=== PATIENT | male | born 1950 | race Caucasian/White ===

== ENCOUNTER 2021-05-12 07:30 | Outpatient (RCR) | payer MEDICARE, BC, SELFPAY ==
--- NOTE | 2021-04-14 08:48 | PTOPEVAL ---
Thank you for referring Nikolas Hensley to [facility].? The patient is scheduled to be seen for therapy? 2x/week for 4 weeks. Please review, sign, date and return this plan of care MARLY. I agree with and certify that the following plan of care is medically necessary. Referring Physician Date Attending Provider: Win Bennett MD Diagnosis knee pain jose Onset January 2021 Subjective Information He reports increased pain Query Text:As Reported By Patient/ during sleep or 1st thing in Family the morning. He has increased pain with prolonged sitting or in recliner chair with LE's elevated. The knees feel better after a shower. Has tried pain patches without relief. He received an injection in the left knee with relief of symptoms. He performs chores as needed with breaks as needed. Diagnostic Tests X-Rays For This Problem Yes: minimal medial joint space,mild spur formation particularly medially Previous Treatments Previous Treatments For This Problem 2 yrs for hips and feet Pain Assessment Left Knee(s) Reported Pain Level 4 Pain Description Aching,Sharp,Throbbing Lowest Pain Intensity 4 Greatest Pain Intensity 9 Pain Aggravating Factors Prolonged Position,Sitting Right Knee(s) Reported Pain Level 1 Pain Description Aching Lowest Pain Intensity 0 Greatest Pain Intensity 1 Lower Extremity Range of Motion Knee Range of Motion Right Knee Flexion Range of Motion - Active 135 Knee Extension Range of Motion - Active 0 Left Knee Flexion Range of Motion - Active 140 Knee Extension Range of Motion - Active 0 Lower Extremity Muscle Strength Testing Hip Strength Right Hip Flexion Strength 4+ Good + Hip Extension Strength 5 Normal Hip Abduction Strength 3+ Fair + Left Hip Flexion Strength 4+ Good + Hip Extension Strength 4 Good Hip Abduction Strength 3 Fair Knee Strength Right Knee Flexion Strength 5 Normal Knee Extension Strength 5 Normal Left Knee Flexion Strength 4 Good Knee Extension Strength 4- Good - Muscle Length Testing Muscle Length Testing Two-Joint Hip Flexor Shortened Muscles Short (R) Iliopsoas,Short (L) Iliopsoas,Short (R) Rectus Femoris,Short (L) Rectus Femoris,Short (R) Ilial Tib
--- NOTE | 2021-05-05 07:40 | PCPTNOTE ---
Patient called & cancelled scheduled appointment this date due to in the family.
--- NOTE | 2021-05-12 08:17 | PTOPEVAL ---
Physical Therapy Discharge Note Thank you for referring Nikolas Hensley to [facility].? Nikolas has been seen for 8 therapy visits to address his knee pain. As a result of therapy services he demonstrates improved leg strength, improved pain and improved functional mobility. He has partially achieved his therapy goals this time. He has reached maximal potential with skilled therapy services at this time. Will DC skilled PT with recommendations for him to cont with his home exercises. Please sign this discharge summary MARLY. I agree with and certify that the following plan of care is medically necessary. Referring Physician Date Attending Provider: Win Bennett MD Diagnosis knee pain jose Onset January 2021 Subjective Information He reports decreased pain Query Text:As Reported By Patient/ during sleep but with Family decreased intensity. Improved pain in the morning once up and moving. He has increased pain with prolonged sitting with increased stiffness, but improves with movement. Denies any limitations with community mobility. Cont to have limitations with descending steps. He is performing his HEP 4x/wk. Pain Assessment Left Knee(s) Reported Pain Level 3 Pain Frequency Chronic Lowest Pain Intensity 1 Greatest Pain Intensity 4 Right Knee(s) Reported Pain Level 0 Pain Description Aching,Dull Pain Frequency Chronic Lowest Pain Intensity 0 Greatest Pain Intensity 1 Lower Extremity Muscle Strength Testing Hip Strength Right Hip Flexion Strength 5 Normal Hip Extension Strength 5 Normal Hip Abduction Strength 3+ Fair + Left Hip Flexion Strength 5 Normal Hip Extension Strength 4+ Good + Hip Abduction Strength 4- Good - Knee Strength Right Knee Flexion Strength 5 Normal Knee Extension Strength 5 Normal Left Knee Flexion Strength 5 Normal Knee Extension Strength 5 Normal Gait Assessment Gait Pattern Observed Decreased Stride Length - Left ,Decreased Stride Length - Right,No Heel Strike - Left,No Heel Strike - Right Other Gait Observations jose hip ext. rotation 2 Minute Walk Total Distance Walked (feet) 580 2 Minute Walk Gait Speed Score (feet/ 4.83 second) 2 Minute Walk Test Comments no knee pain changes Stair Climbing Assessment Stair Climbing Assessment Stair Climbing Assistive Devices
== END 2021-05-12 15:46 | disposition home or self-care (01) ==
LOC: ANHPT 07:30
PROVIDERS: PCP Family Medicine Adolescent Medicine; Visit Provider Orthopaedic Surgery
DX: M25.561 Pain in right knee (principal); M25.562 Pain in left knee
CPT/HCPCS: 97110; 97162

== ENCOUNTER → 2022-04-28 14:02 | Outpatient (CLI) | payer MEDICARE, BC, SELFPAY ==
--- NOTE | ~2022-04-28 | CT_ITS ---
EXAMINATION: CT abdomen pelvis wo con DATE: 04/28/2022 14:23 INDICATION: Left abdominal mass. TECHNIQUE: Computed tomography (CT) of the abdomen and pelvis was performed without intravenous contr ast. Automated exposure control and iterative reconstruction technique were employed. The dose-length product was 1031.90 mGy-cm. COMPARISON: CT abdomen and pelvis 12/06/2015 FINDINGS: The visualized portions of the lung bases demonstrate mild atelectasis and mild chronic lara g disease. No pleural effusion. There is left ventricular enlargement of the heart. There is subendoc ardial fat involving left ventricular apex, apical lateral wall, anterior wall, and septal wall, cons istent with old infarct. There are coronary artery calcifications. There are pacer wires in right atr ium, right ventricle, and coronary sinus. There is diffuse hepatic steatosis. The gallbladder, spleen , pancreas, and adrenal glands are normal. There are peripelvic cysts in the kidneys measuring up to 2.5 cm on the left. There are bilateral inguinal hernias containing fat. The prostate is mildly enlar ged. There is diverticulosis of the colon without evidence of diverticulitis. There are no dilated lo ops of bowel. There are changes of appendectomy. There is a 2.1 cm saccular aneurysm of infrarenal ao rta on the left. This gives the aorta an overall diameter of 3.6 cm in this area. There is severe lum bar spondylosis. IMPRESSION: 1. Bilateral inguinal hernias containing fat. 2. Worsened 2.1 cm saccular aneurysm of infrarenal aorta on the left. This gives the aorta an overall diameter of 3.6 cm in this area. Reviewed, dictated and finalized at location A. IMPRESSION: 1. Bilateral inguinal hernias containing fat. 2. Worsened 2.1 cm saccular aneurysm of infrarenal aorta on the left. This give s the aorta an overall diameter of 3.6 cm in this area.
== END ==
PROVIDERS: PCP Family Medicine Adolescent Medicine; Visit Provider Surgery
DX: K40.90 Unilateral inguinal hernia, without obstruction or gangrene, not specified as recurrent (principal); I72.9 Aneurysm of unspecified site; N40.0 Benign prostatic hyperplasia without lower urinary tract symptoms; N28.1 Cyst of kidney, acquired; M47.816 Spondylosis without myelopathy or radiculopathy, lumbar region
CPT/HCPCS: 74176

== ENCOUNTER 2022-09-13 09:13 | Outpatient (CLI) | payer MEDICARE, BC, SELFPAY ==
--- NOTE | 2022-09-13 09:31 | ECG_ITS ---
Measurements Intervals [place] Rate: 61 P: -55 WV: 142 QRS: -57 QRSD: 107 T: 16 QT: 396 QTc: 401 Interpretive Statements ELECTRONIC VENTRICULAR PACEMAKER NO FURTHER INTERPRETATION POSSIBLE NO PREVIOUS ECG AVAILABLE FOR COMPARISON Electronically Signed On 09-13-2022 14:36:03 [employer]EARCH LABORATORY MANAGER by Marco Johnson M.D.
[2022-09-13 11:33] LABS: Anion Gap 3 mmol/L (8-16); Blood Urea Nitrogen 18 mg/dL (9-20); Calcium 8.2 mg/dL (8.4-10.2); Carbon Dioxide 30 mmol/L (22-30); Chloride 101 mmol/L (98-107); Estimated Glomerular Filt Rate 46; Glucose 109 mg/dL (65-110); Potassium 4.1 mmol/L (3.4-5.0); Sodium 134 mmol/L (137-145)
== END 2022-09-13 09:14 | disposition home or self-care (01) ==
PROVIDERS: Anesthesiology; PCP Family Medicine Adolescent Medicine; Visit Provider Plastic Surgery
DX: Z01.818 Encounter for other preprocedural examination (principal); I10 Essential (primary) hypertension; Z95.0 Presence of cardiac pacemaker
CPT/HCPCS: 36415; 80048; 93005

== ENCOUNTER 2022-09-16 00:30 | Day surgery (SDC) | payer MEDICARE, BC, SELFPAY ==
--- NOTE | 2022-09-10 13:22 | PC.NURSE ---
Report to the Outpatient Waiting Room, entrance under the green pavilion located off [facility], at time _0730 on date __09/16/22 . Planned Procedure Time: _0930 . Time changes happen often and if your time is changed the preop area will call you the afternoon before. - You and your visitor will be asked to self-screen and do not enter if you have any COVID symptoms. - Only one visitor is requested with a max of two and NO children visitors are allowed at this time. - The patient visitor may be requested to leave or wait in car when not with patient due to distancing restrictions. - A mask is optional within the hospital at this time. Patients may have clear liquids (water, carbonated beverages, clear teas, apple juice) until 3 hours prior to surgery with a maximum of 20 ounces. - No food from midnight until time of surgery - Infants may have breast milk until 4 hours before surgery, infant formula 6 hours prior to surgery. - Children will be allowed to drink immediately following surgery. If applicable, please bring a bottle or sippy cup to assist with drinking. Juice, water, soda, and popsicles are readily available. For infants on formula, please bring formula the day of surgery. Pacifiers are allowed. Take the following medications with a SIP of water the morning of surgery: __AMIODARONE,CARVEDILOL,PREDNISONE DO NOT STOP ANY OF YOUR OTHER PRESCRIPTION MEDICATIONS PRIOR TO SURGERY ?EXCEPT THE FOLLOWING Medications to discontinue per physician __ALL VITAMINS/SUPPLEMENTS 3 DAYS PRE OP. LAST DOSE 09/12/22 PT STATES REMAIN ON PLAVIX PER DR CORDOVA- DON'T TAKE MORNING OF SURGERY Please no make-up, nail english, hairspray, perfume, deodorant, or body powder the day of surgery. No jewelry (including any body piercings) or valuables the day of surgery, leave them at home. Please take a shower or bath the night before, or the morning of, surgery with an antibacterial soap. Wear comfortable, loose fitting clothing. Children are encouraged to wear pajamas. - Jewelry must be removed prior to entering the operating room. Rings and piercings that are not removed may be cut off. - The hospital will not accept responsibility for valuables. - Please leave all valuables, including medications, at home the day of surgery. If you are going home after surgery, a licensed parts delivery driver must drive you home. - NO public transportation without another adult if you receive anesthesia. - We recommend that an adult stay with you for 24 hours following discharge. - We also recommend that you do not drive, make important decision, drink alcoholic beverages, or take any drugs that were not prescribed by your health care provider for at least 24 hours after your discharge time. Follow any additional instructions given to you from your surgeon. If you or anyone in your household have experienced Covid symptoms in the past week, please notify your surgeon or the nurse liaison at the phone number below for possible testing. Telephone instructions given to ___PATIENT and asked if any additional questions and then verbalized understanding. Patient advised to call surgeon office or pre surgery nurse liaison [phone] if any additional questions.
[2022-09-10 13:29] VITALS: BMI 29.8
--- NOTE | 2022-09-15 11:49 | WPDANESEPPF ---
Anes - Initial Pre Proc Eval Procedure: Operation Date: 09/16/22 09:30 Proposed Procedures p Right Partial Palmar Fasciectomy - Silverio Vallejo MD Date/Time: 09/15/22 11:49 Surgeon: Silverio Vallejo MD Pre Op Diagnosis: Dupuytren's contracture right hand Patient Data Age: 72 Gender: M Height: 1.83 m Weight: 99.8 kg Allergies Allergy/AdvReac Type Severity Reaction Status Date / Time No Known Allergies Allergy Verified 09/10/22 13:11 Home Medications Medication Instructions Recorded Confirmed Type atorvastatin 40 mg tablet 40 mg PO DAILY 05/21/19 09/10/22 History carvedilol phosphate 40 mg 40 mg PO DAILY 05/21/19 09/10/22 History capsule,[id number] multiphase clopidogrel 75 mg tablet 75 mg PO DAILY 05/21/19 09/10/22 History finasteride 5 mg tablet 5 mg PO DAILY 05/21/19 09/10/22 History furosemide 20 mg tablet 20 mg PO BID 05/21/19 09/10/22 History tadalafil 5 mg tablet (Cialis) 5 mg PO DAILY 05/21/19 09/10/22 History amiodarone 200 mg tablet 200 mg PO DAILY 04/09/22 09/10/22 History sacubitril 24 mg-valsartan 26 mg 1 tablet PO BID #60 tabs 06/23/22 09/10/22 Rx tablet (Entresto) prednisone 50 mg tablet 50 mg PO DAILY #5 tabs 07/26/22 09/10/22 Rx magnesium 100 mg capsule 100 mg PO DAILY 09/10/22 09/10/22 History zinc 50 mg tablet 50 mg PO DAILY 09/10/22 09/10/22 History Patient hx anesthesia problems: none Family hx anesthesia problems: none Results Review: All pre-operative results and documents have been reviewed as part of the pre-operative evaluation. [facility] Past Medical History Medical History (Updated 09/15/22 @ 11:51 by Lino Oglesby DO) Bilateral knee pain Chronic systolic (congestive) heart failure COPD (chronic obstructive pulmonary disease) Frequency of urination GERD (gastroesophageal reflux disease) Hearing loss History of atrial flutter History of PTCA 2 Hx of myocardial infarction (~03/2003) Hypertension ICD (implantable cardioverter-defibrillator) in place Infrarenal abdominal aortic aneurysm (AAA) without rupture Surgical History Surgical History (Updated 09/15/22 @ 11:51 by Lino Oglesby DO) H/O umbilical hernia repair History of cardiac pacemaker History of heart artery stent x2, 2003 Hx of appendectomy (2006) Family History Family History Father Cirrhosis Mother , age 96 Hypertension Sibling , age 44 Lung cancer Grandparent Acute myocardial infarction Other Family history of malignant neoplasm Social History Social History Smoking packs per day: 1 Smoking cigarettes per day: 20.0 Years smoked: 37 Smoking pack-years: 37.00 Smoking status: Former smoker Tobacco type: cigarettes Smoking end date: 07/18/03 Alcohol intake: current Alcohol use details: 3-4 PER DAY. [employer] Substance use: current Substance use type: marijuana Other substance usage details: X 15 YEARS Last use: 09/09/22 Living arrangements: alone Occupation/Education: retired Gender identity (if verbalized by the patient): Male Spiritual care concerns: No Anes - Eval Final PreProcedure Day of Procedure 09/15/22 11:49 Patient weight: overweight Heart: regular rate and rhythm Lungs: clear to auscultation Airway: Mallampati scale class III Neurological: alert and oriented Last oral intake: >/= 8 hours ASA classification: IV Emergent: no Anesthetic plan: proceed Anesthesia type and monitoring: general LMA and standard monitoring Results Review: All pre-operative results and documents have been reviewed as part of the pre-operative evaluation. Informed Consent: The patient's anesthetic plan and its attendant risks and benefits were discussed with the patient/family/POA. Questions were solicited and answers provided to the satisfaction of the patient/family/POA.
[2022-09-16] VITALS (7 sets, daily range): BP systolic 132–144; BP diastolic 72–90; PULSE 55–65; RESP 12–18; TEMP 36.2–36.4; O2SAT 96–100
--- NOTE | 2022-09-16 07:12 | WPDHPUPDATE1 ---
History and Physical Update Update Date/Time: 09/16/22 07:12 History and Physical has been reviewed, including an updated exam of the patient. There are NO changes in the patient's condition. Risks, benefits, and alternatives have been discussed and questions answered. Patient agrees to proceed with procedure.
[2022-09-16] MEDS: LIDO 1%/EPINEPHRINE 1:100,000 20 ML VIAL 5 ML INFILTRATE (10:00)
[2022-09-16] MEDS: BACITRACIN OINTMENT 15 GM TUBE 1 APPLIC TOPICAL (10:02)
[2022-09-16] MEDS: LACTATED RINGERS 1,000 ML 30 ML IV CONT (11:58)
--- NOTE | 2022-09-16 12:22 | P.OP_ITS ---
Procedure Note - Detailed Date of Procedure 09/16/22 Pre-op Diagnosis Dupuytren's contracture right hand Post-op Diagnosis Same Procedure Performed Right partial palmar fasciectomy Surgeon Silverio Vallejo MD [employer] Consult[employer] joana Anesthesia General Description of Procedure the patient's right palm was marked in the holding area . He was taken to the operating room where he was placed supine on the operating table. He was given general endotracheal anesthesia. The extremity was prepped and draped in usual fashion. The site was marked for proposed incisions. This area was infiltrated with 1% lidocaine with epinephrine limited to the palm, not the finger. The extremity was exsanguinated with an Nathan wrap and the tourniquet was then inflated to 250 mmHg. The hand was placed on a lead hand. The incisions in the palm were incised and skin flap elevated. The area of scarring from the previous Xiaflex injection was identified. The significant pretendinous cord was identified. We were able to incise all that from the palm. The neurovascular bundles tendon and lumbricals were identified. Significant reduction in contracture was achieved by this. The volar midline incision to the pad of the ring finger was incised and the skin was carefully elevated exposing the neurovascular bundles in the digit along with the very extensive Dupuytren's cords which included a midline coronary spiral cord and dense lateral cords. All this tissue was removed taking care to isolate the neurovascular bundles. We were able to get the distal interphalangeal joint straight. The proximal interphalangeal joint was improved considerably. Two scoring incisions were made in the flexor tendon sheath At the A2 tomer to allow some further extension. We did not elect to release check rein ligaments. The patient's primary concern is that he could hold a golf club. . The skin was closed with interrupted and running 5 0 nylon sutures. Three Z-plasties were made on the finger 1 in each joint. The tourniquet was released at 90 minutes. The usual dressing was applied with no splint. He was discharged home with instructions in wound care and follow-up. He has a prescription for hydrocodone 5/325 number 5 and cephalexin 500 mg t.i.d. 15. . Estimated Blood Loss 10 Tourniquet Time 90 Drains No Packing No Pathology None sent Complications No immediate complications Condition Stable Disposition PACU
== END 2022-09-16 13:55 | disposition home or self-care (01) ==
PROVIDERS: PCP Family Medicine Adolescent Medicine; Visit Provider Plastic Surgery
PROC: (CPT 26045; principal; 2022-09-16 09:30)
DX: M72.0 Palmar fascial fibromatosis [Dupuytren] (principal); I11.0 Hypertensive heart disease with heart failure; I50.22 Chronic systolic (congestive) heart failure; J44.9 Chronic obstructive pulmonary disease, unspecified; I25.2 Old myocardial infarction; K21.9 Gastro-esophageal reflux disease without esophagitis; I71.40 Abdominal aortic aneurysm, without rupture, unspecified; Z95.5 Presence of coronary angioplasty implant and graft; Z95.810 Presence of automatic (implantable) cardiac defibrillator; Z79.02 Long term (current) use of antithrombotics/antiplatelets; Z87.891 Personal history of nicotine dependence; F12.90 Cannabis use, unspecified, uncomplicated
CPT/HCPCS: 26123; A9270; J2405; J2704; J3010; J7120

== ENCOUNTER 2022-11-11 08:30 | Outpatient (RCR) | payer MEDICARE, BC, SELFPAY ==
--- NOTE | 2022-10-13 09:30 | OTOPEVAL1 ---
Assessment and note entered by Rick Arias, OTR/L, CHT Evaluation Information Assessment Status Evaluation Diagnosis swelling, stiffness, and open wounds R hand s/p partial palmar fasciectomy Onset 09/16/22 Subjective Information Patient has Dupuytren's on bilateral hands. He had an open partial palmar fasciectomy on the right palm about 4 weeks ago. He has open areas of dehiscence. He does his own dressing changes once a day. Reports he would like to get back to gardening again. Reporting no pain at rest, some burning in the palm. Has intermittent sudden onsets of shooting pains that start in the palm and go down to the tip of the ring finger. Reported Pain Level Pain Score 0: Self Report Assessment OT Clinical Summary Nikolas is a 72 year-old, right handed male who is about 4 weeks out from a partial palmar fasciectomy of the right hand. He has some wound dehiscence in the palm and has been keeping the area covered with dry dressings which he changes daily. Instructed in ROM HEP to improve flexibility and tendon glide beneath the wound to reduce any scar adhesions while he heals. Continued skilled OT indicated to progress HEP as tolerated and eventually use of modalities, manual therapy, scar management, and functional therapeutic activities to facilitate optimal functional use of the right hand. May utilize night splinting as intervention for passive, prolonged stretching to keep the finger out of the palm. Plan of Care Interventions Therapeutic Exercise,Manual Therapy,Therapeutic Activities,Hot Pack/Cold Pack,Check Out for Orthotic/Pr,Ultrasound,Paraffin OT Services Indicated Yes Treatment Frequency and 1x/week for 4 weeks Duration These treatments will address the objective and functional deficits as defined above. The patient will be advanced safely and appropriately in order for the patient to progress towards his/her prior level of function. Additional exercises will be introduced and as well as a comprehensive home exercise program upon discharge, if needed, ?to ensure carryover of functional gains achieved in the clinic. This treatment plan has been reviewed and agreement upon by the patient.
--- NOTE | 2022-11-11 09:23 | OTOPDC ---
Assessment and note entered by Rick Arias, OTR/L, CHT Evaluation Information Assessment Status Discharge Diagnosis swelling, stiffness, and open wounds R hand s/p partial palmar fasciectomy Onset Surgery - 09/16/22 Subjective Information Patient reports he is a little disappointed by his progress. He feels like his ROM is the same as it was prior to surgery. He reports since his wound has healed, he is back to gardening. He reports he is back to doing everything he was able to do before the surgery. Reports he is able to open his hand enough to get all of his fingers around a beverage, where before he was only using his radial 3 fingers. ROM measurements at the PIP joint have remained unchanged since our initial visit on 10/13/22. The PIP is flexing 90-95 degrees and continues to have -65/-60 degree extension lag when trying to fully open the hand. The MCP and DIP joints are WFL. Passive PIP extension improved by 10 degrees. He is able to make a functional fist. Reported Pain Level Pain Score 0: Self Report Additional Pain Score Comments No pain this morning. He reports onset of pain in the evenings after he's used his hand all day. He takes ibuprofen for the pain. No daily, but frequently. Continues to have some shooting pains that radiate down to the tip of the ring finger. He notes these are less frequent. Assessment OT Clinical Summary Nikolas is a 72 year-old, right handed male who is about 8 weeks out from a partial palmar fasciectomy of the right hand. It appears that he had some ROM improvements right after surgery (he reports his PIP was flexed 110 degrees pre surgery ), however he has had minimal changes since he started therapy about a month ago. The PIP has improved to a 60/65 degree bend when trying to actively extend, which has allowed him to open his hand enough to grab some cups/drinks. He is independent with scar massage, ROM/stretching, and strengthening HEP with putty. No further skilled OT indicated at this time.
== END 2022-11-12 12:23 | disposition home or self-care (01) ==
LOC: ANHGOSHOT 08:30
PROVIDERS: PCP Family Medicine Adolescent Medicine; Visit Provider Plastic Surgery
DX: Z48.89 Encounter for other specified surgical aftercare (principal); T81.31XD Disruption of external operation (surgical) wound, not elsewhere classified, subsequent encounter; M25.641 Stiffness of right hand, not elsewhere classified; M79.89 Other specified soft tissue disorders
CPT/HCPCS: 97110; 97140; 97165

== ENCOUNTER 2025-03-08 08:21 | Outpatient (CLI) | payer MEDICARE, BC, SELFPAY ==
--- NOTE | ~2025-03-08 | CT_ITS ---
EXAMINATION: CT chest high resolution wo ne DATE: 03/08/2025 08:40 INDICATION: Shortness of breath TECHNIQUE: Computed tomography (CT) of the chest was performed without intravenous contrast. The dose-length product was 372.19 mGy-cm. COMPARISON: None FINDINGS: Left-sided generator with leads. No enlarged mediastinal or hilar lymph nodes. Heart is mildly enlarged. There are a few coronary artery calcifications. Thoracic aorta is not aneurysmal but is partially calcified. Trachea bronchial tree is patent. Mild bronchiectasis in the lower lobes. No pneumothorax. No pleural effusion. No focal pulmonary consolidation. No pulmonary mass. There are a few small reticular subpleural opacities in the mid and lower lungs likely atelectasis or scarring. No honeycombing. No pulmonary nodules. IMPRESSION: 1. No pulmonary mass or pulmonary nodules. 2. No focal pulmonary consolidation. 3. Mild bronchiectasis in the lower lobes. 4.There are a few small reticular subpleural opacities in the mid and lower lungs likely atelectasis or scarring. Reviewed, dictated and finalized at location Q. IMPRESSION: 1. No pulmonary mass or pulmonary nodules. 2. No focal pulmonary consolidation. 3. Mild bronchiectasis in the lower lobes. 4.There are a few small reticular subpleural opacities in the mid and lower lara gs likely atelectasis or scarring.
== END 2025-03-08 08:22 | disposition home or self-care (01) ==
LOC: MICIMG 08:22
PROVIDERS: PCP Family Medicine Adolescent Medicine; Visit Provider Physician Assistant
DX: R06.02 Shortness of breath (principal); Z79.899 Other long term (current) drug therapy; R94.2 Abnormal results of pulmonary function studies; J47.9 Bronchiectasis, uncomplicated
CPT/HCPCS: 71250